=== PATIENT | female | born 1985 | race Caucasian/White ===

== ENCOUNTER 2017-11-04 22:38 | Emergency (ER) | payer MEDICAID, BC ==
[2017-11-05] MEDS: ONDANSETRON (ODT) 4 MG TAB ODT (02:17)
[2017-11-05] MEDS: ACET/BUTAL/CAFF TAB PO (02:18)
== END 2017-11-05 02:27 | disposition home or self-care (01) ==
LOC: FTE 22:38
DX: R51 Headache (principal)
CPT/HCPCS: 99284; Z7502